=== PATIENT | female | born 1990 | race Caucasian/White ===

== ENCOUNTER 2023-08-24 19:10 | Emergency (ER) | payer BC, SELFPAY ==
[2023-08-24 19:11] VITALS: BP 132/71; PULSE 94; RESP 16; TEMP 36.9; O2SAT 98; BMI 34.2
[2023-08-24 19:57] VITALS: BP 101/69; PULSE 85; RESP 18; TEMP 36.9; O2SAT 96
--- NOTE | 2023-08-24 20:50 | HMH.EDGENADL ---
Discharge Plan Disposition Patient Disposition: Home, Self-Care Condition: Good Prescriptions Prescriptions: New hydrocortisone acetate [Anusol-HC] 25 mg suppository 25 mg SC DAILY PRN (Reason: hemorrhoids) Qty: 12 0RF Referrals Follow up/Referrals: Provider,Rivas, [Primary Care Provider] - See instructions Chandler Gaston MD [Staff Physician] - See instructions Activity Restrictions/Add. Instructions Additional Instructions/Restrictions: You were evaluated in the emergency department today. At this time, I feel that your symptoms are likely related to hemorrhoids. If they continue, I would recommend follow-up with gastroenterology or general surgery for potential endoscopy. Return to the emergency department for new or worsening symptoms, such as significant pain, significant increasing bleeding, or other concerns. I recommend making sure that your stools are soft to limit pressure on the hemorrhoids. bioinformatics support specialist your prescription for suppositories and use as needed. Clinical Impressions Clinical Impression: Hemorrhoids, BRBPR (bright red blood per rectum) Instructions Patient Instructions: DI for Hemorrhoids, DI for Gastrointestinal Bleeding Discharge ED Provider: Brianda Martinez General Adult HPI General Chief complaint: GI Bleed Stated complaint: blood in stool Time Seen by Provider: 08/24/23 19:18 Mode of Arrival: Ambulatory Source of Information: Patient Limitations: No Limitations Description of Symptoms (Recalled from ER Triage Doc. by RN): pt reports bright red blood with BM, reports no pain, reports having history of previos episodes but did not get seen for it History of Present Illness HPI narrative: This patient is a 33-year-old female who denies significant past medical history presented to the emergency department for evaluation with concern for intermittent episodes of bright red blood per rectum. She states that it is with bowel movements. She does not have significant pain in her abdomen or rectum with this. She thought that it was probably hemorrhoids, however she has made sure to eat a lot of fiber and is having good bowel movements and the symptoms have continued to recur. She denies any other concerns, such as fevers, chills, or other issues. The blood does not feel the toilet bowl and her stool is not blood colored. Related Data Previous Rx's Medication Instructions Recorded hydrocortisone acetate 25 mg 25 mg SC DAILY PRN hemorrhoids #12 08/24/23 rectal suppository (Anusol-HC) ea Allergies Allergy/AdvReac Type Severity Reaction Status Date / Time cephalexin [CEPHALEXIN] Allergy Unknown Unverified 08/23/17 14:09 [facility] Disclaimer: The information contained in this section may have been updated after the patient was seen, as this information can be updated by other users. Social History Smoking Status: Never smoker alcohol intake: never current occupational status: employed Travel in the last 8 weeks: None ROS Obtained: Yes All systems reviewed & no additional complaints except as documented Physical Exam General General appearance: alert and in no apparent distress Head Head exam: atraumatic and normocephalic Eye Eye exam: Present normal appearance, PERRL and EOMI ENT ENT exam: Present normal exam, normal oropharynx, mucous membranes moist and normal external ear exam Neck Neck exam: Present normal inspection, full ROM and trachea midline; Absent tenderness Chest Chest inspection: Present normal inspection and symmetric chest wall rise; Absent tenderness Respiratory Respiratory exam: Present normal lung sounds bilaterally; Absent respiratory distress, wheezes, stridor or accessory muscle use Cardiovascular Cardiovascular exam: Present regular rate and normal rhythm Abdominal Exam Abdominal exam: Present soft; Absent distention, tenderness or guarding Rectal Exam Rectal exam: Present hemorrhoid
== END 2023-08-24 19:58 | disposition home or self-care (01) ==
PROVIDERS: Emergency Provider Emergency Medicine
DX: K62.5 Hemorrhage of anus and rectum (principal); K64.9 Unspecified hemorrhoids
CPT/HCPCS: 99283

== ENCOUNTER 2025-08-06 15:38 | Outpatient (CLI) | payer BC, SELFPAY ==
--- OUTSIDE RECORDS SUMMARY | 2025-07-03 13:40 | XMS_ITS | Encounter Summary ---
Author Organization [facility] Address [address] [place] [address] Care Team Providers Care Certified Emergency Vehicle Technician Name Role Phone Héctor Pool MD Primary Care Provider + Reason for Visit * Reason Comments Gynecologic Exam Encounter Details Date Type Department Care Team (Late st Contact Info) Description 07/03/2025 2:40 PM EDT Office Visit [facility] OBGYN [address] [place] [address] Monserrat Jasso MD [address] [place] [address] Women's annual routine gynecological examination (Primary Dx); Encounter for surveillance of contraceptive pills Social History Tobacco Use Types Packs/Day Years Used Date Smoking Tobacco: Never Smokeless Tobacco: Never Alcohol Use Standard Drinks/Week Comments Not Currently 0 (1 standard drink = 0.6 oz pure alcohol) occasional--no abuse--current some day [place] Depression Scale Answer Date Recorded [place] Depression Scale Total 1 10/01/2020 The thought of harming myself has occurred to me . 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 Gynecologic Annual Exam Note Gynecologic Exam Subjective HPI Juana Bowen is a 35 y.o. female who presents for annual well woman exam as a established patient. There were no changes to her medical or surgical history since her last visit.. Patient'slast menstrual period was 06/12/2025. Her periods occur every 28-30 days, lasting 5 days. The flow is light. She denies dysmenorrhea. Marital Status: . She is sexually active. She has not had new partners.. STD testing recommendations have been explained to the patient and she does not desire STD testing. 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 Results: negative. HPV: not done. Her last HPV testing was 2022 and was neg.. Last Completed Pap Smear Upcoming PAP SMEAR (Every 3 Years) Next due on 06/13/2027 06/13/2024 LIQUID-BASED PAP SMEAR WITH HPV GENOTYPING IF ASCUS (MAKENNA,COR,MAD) 06/01/2023 LIQUID-BASED PAP SMEAR WITH HPV GENOTYPING REGARDLESS OF INTERPRETATION (MAKENNA,COR,MAD) 04/07/2021 Pap IG, HPV-hr History of abnormal Pap smear: no Gardasil status:completed Family history of uterine, colon, breast, or ovarian cancer: yes - PGGM- breast Performs monthly Self-Breast Exam: yes Exercises Regularly:yes Feelings of Anxiety or Depression: no Tobacco Usage?: No Current Outpatient Medications: albuterol sulfate HFA 108 (90 Base) MCG/ACT inhaler, Inhale 1-2 puffs As Needed. every 4 to 6 hours, Disp: , Rfl: azelastine (ASTELIN) 0.1 % nasal spray, Administer 2 sprays into the nostril(s) as directed by provider 2 (Two) Times a Day. Use in each nostril as directed, Disp: , Rfl: budesonide-formoterol (Symbicort) 160-4.5 MCG/ACT inhaler, Inhale 2 puffs., Disp: , Rfl: EPINEPHrine (EPIPEN) 0.3 MG/0.3ML solution auto-injector injection, USE DIRECTED IN EVENT OF ANAPHYLAXIS, Disp: , Rfl: fluticasone (FLONASE) 50 MCG/ACT nasal spray, Administer 2 sprays into the nostril(s) as directed by provider Daily., Disp: , Rfl: Loratadine 10 MG capsule, Take by mouth., Disp: , Rfl: mometasone-formoterol (Dulera) 100-5 MCG/ACT inhaler, Every 12 (Twelve) Hours., Disp: , Rfl: norgestimate-ethinyl estradiol (Sprintec 28) 0.25-35 MG-MCG per tablet, Take 1 tablet by mouth Daily., Disp: 84 tablet, Rfl: 3 Patient is requesting refills of OCP. OB History 1 Para 1 Term 1 AB Living 1 SAB IAB Ectopic Molar Multiple 0 Live Births 1 Health Maintenance Topic Date Due Pneumococcal Vaccine 0-49 (1 of 2 - PCV) Never done ANNUAL PHYSICAL Never done INFLUENZA VACCINE 04/05/2025 Annual Gynecologic Pelvic and Breast Exam 06/14/2025 PAP SMEAR 06/13/2027 TDAP/TD VACCINES (3 - Td or Tdap) 07/05/2030 HEPATITIS C SCREENING Completed Past Medical History: Diagnosis Date Allergic 1999 Variety Asthma 2014 Ovarian cyst 2010 Sodium deficiency Past Surgical History: Procedure Laterality Date SECTION N/A 08/19/2020 Procedure: SECTION PRIMARY; Surgeon: Monserrat Jasso MD; Location: [facility]OR DELIVERY; Service: Obstetrics/Gynecology; Laterality: N/A; 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 Review of Systems Constitutional: Negative. HENT: Negative. Eyes: Negative. Respiratory: Negative. Cardiovascular: Negative. Gastrointestinal: Negative. Endocrine: Negative. Genitourinary: Negative. Musculoskeletal: Negative. Skin: Negative. Allergic/Immunologic: Negative. Neurological: Negative. Hematological: Negative. Psychiatric/Behavioral: Negative. I have reviewed and agree with the HPI, ROS, and historical information as entered above. Monserrat Jasso MD Objective BP 104/70 Ht 152.4 cm (60 ) Wt 83.2 kg (183 lb 6.4 oz) LMP 06/12/2025 BMI 35.82 kg/m?? Physical Exam Vitals and nursing note reviewed. Exam conducted with a laboratory chief present. Constitutional: Appearance: She is well-developed. HENT: Head: Normocephalic and atraumatic. Eyes: Pupils: Pupils are equal, round, and reactive to light. Neck: Thyroid: No thyroid mass or thyromegaly. Pulmonary: Effort: Pulmonary effort is normal. No retractions. Chest: Chest wall: No mass. Breasts: Right: Normal. No mass, nipple discharge, skin change or tenderness. Left: Normal. No mass, nipple discharge, skin change or tenderness. Abdominal: General: Bowel sounds are normal. Palpations: Abdomen is soft. Abdomen is not rigid. There is no mass. Tenderness: There is no abdominal tenderness. There is no guarding. Hernia: No hernia is present. There is no hernia in the left inguinal area or right inguinal area. Genitourinary: Exam position: Lithotomy position. Pubic Area: No rash. Labia: Right: No rash, tenderness or lesion. Left: No rash, tenderness or lesion. Urethra: No urethral pain or urethral swelling. Vagina: Normal. No vaginal discharge or lesions. Cervix: No cervical motion tenderness, discharge, lesion or cervical bleeding. Uterus: Normal. Not enlarged, not fixed and not tender. Adnexa: Right: No mass, tenderness or fullness. Left: No mass, tenderness or fullness. Rectum: No external hemorrhoid. Musculoskeletal: Cervical back: Normal range of motion. No muscular tenderness. Right lower leg: No edema. Left lower leg: No edema. Skin: General: Skin is warm and dry. Neurological: Mental Status: She is alert and oriented to person, place, and time. Motor: Motor function is intact. Psychiatric: Mood and Affect: Mood and affect normal. Behavior: Behavior normal. 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 Reviewed pap guidelines. Reviewed monthly self breast exams. Instructed to call with lumps, pain, or breast discharge. Reviewed exercise as a preventative health measures. Return in about 1 month (around 08/03/2025) for F/U . Monserrat Jasso MD 07/03/2025 documented in this encounter Plan of Treatment Upcoming Encounters Date Type Department Care Team (Late st Contact Info) Description 07/09/2026 10:50 AM EST Office Visit [facility] OBGYN [address] [place] [address] Monserrat Jasso MD [address] [place] [id number] documented as of this encounter Visit Diagnoses Diagnosis Women's annual routine gynecological examination- Primary Encounter for surveillance of contraceptive pills documented in this encounter Care Teams Certified Emergency Vehicle Technician Relationship Specialty Start Date End Date Héctor Pool MD [address] [place] [address] PCP - General Family Medicine 03/09/24 documented as of this encounter
--- OUTSIDE RECORDS SUMMARY | 2025-08-07 09:57 | XMS_ITS | Encounter Summary ---
Author Organization [facility] Address [address] [place] [address] Care Team Providers Care Inspectors And Regulatory Officers Name Role Phone Héctor Polo MD Primary Care Provider + Encounter Details Date Type Department Care Team (Latest Contact Info) Description 07/03/2025 Travel Social History Tobacco Use Types Packs/Day Years Used Date Smoking Tobacco: Never Smokeless Tobacco: Never Alcohol Use Standard Drinks/Week Comments Not Currently 0 (1 standard drink = 0.6 oz pure alcohol) occasional--no abuse--current some day [place] Depression Scale Answer Date Recorded [place] Depression Scale Total 1 10/01/2020 The thought [...] 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 on file Not on file documented as of this encounter Plan of Treatment Upcoming Encounters Date Type Department Care Team (Late st Contact Info) Description 07/09/2026 10:50 AM EST Office Visit [facility] OBGYN [address] [place] [address] [place] [address] [place] [address] [place] [id number] documented as of this encounter Visit Diagnoses Not on filedocumented in this encounter Care Teams Inspectors And Regulatory Officers Relationship Specialty Start Date End Date Héctor Pool MD [address] [place] [address] PCP - General Family Medicine 03/09/24 documented as of this encounter
--- OUTSIDE RECORDS SUMMARY | 2025-08-07 09:57 | XMS_ITS | Clinical Summary ---
Author Organization [email or web address] ([place], [place], [place], [place], [place]) Address [address] [place] [address] Care Team Providers Care Chief Substation Operator Name Role Phone [facility], Provider Not In The System Primary Care Provider Unavailable Allergies Active Allergy Reactions Criticality Noted Date Comments Acetaminophen Other (See Comments) 01/04/2024 Dry mouth, pain that shoots down spine Adhesive Tape Rash Low 01/04/2024 itching Medications fluticasone propionate (FLONASE) 50 mcg/actuation nasal spray 2 sprays by Nasal route. Active loratadine 10 mg Cap Take by mouth. Active azelastine (ASTELIN) 137 mcg (0.1 %) nasal spray 2 sprays by Nasal route. Active budesonide-form oteroL (SYMBICORT) 160-4.5 mcg/actuation inhaler Inhale 2 puffs by mouth via inhaler 2 (two) times daily. Active Active Problems Problem Noted Date Diagnosed Date Asthma Obesity (BMI 30.0-34.9) Social History Tobacco Use Types Packs/Day Years Used Date Smoking Tobacco: Never Smokeless Tobacco: Never Tobacco Cessation:Counseling Given: Not Answered Alcohol Use Standard Drinks/Week Comments Not Asked 0 (1 standard drink = 0.6 oz pur e alcohol) rarely Food Insecurity Answer Date Recorded Food run out past 12 months Not on file 09/07 Food did not last past 12 months Not on file 10/05/2023 Employment Answer Date Recorded Help finding and keeping a job Not on file 0 10/05/2023 Family and Community Support Answer Grant e Recorded Help with Day to Day Activities Not on file 10/05/2023 Feeling Lonely or Isolated Not on file 10/05 Educational Attainment Answer Date Ayden rded Speak language other than Sammarinese at home Not on file 10/05/2023 Want help with school or training Not on file 10/05/2023 Substance Use Answer Date Recorded Used prescription meds for non-medical reasons N ot on file 10/05/2023 Used illegal drugs past 12 months Not on file 10/05/2023 Comments No Sex and Gender Information Value Date Recorded Sex Assigned at Not on file Legal Sex Female 10:45 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 Gender Identity Not on file Sexual Orientation Not on file Last Filed Vital Signs Vital Sign Reading Time Taken Comments Blood Pressure 113/67 01/05/2024 11:20 AM EDT Pulse 75 01/05/2024 11:20 AM EDT Temperature 36.3 C (97.3 F) 01/05/2024 11:07 AM EDT Respiratory Rate 16 01/05/2024 11:20 AM EDT Oxygen Saturation 100% 01/05/2024 11:20 AM EDT room air Inhaled Oxygen Concentration - - Weight 80.1 kg (176 lb 9.6 oz) 01/05/2024 7:40 A M EDT Height 152.4 cm (5') 01/05/2024 7:40 AM EDT Body Mass Index 34.49 01/05/2024 7:40 AM EDT Plan of Treatment Health Maintenance Due Date Last Done Comments Depression Screening (12+) 2003 HIV Screening 2006 Hepatitis C Screening 2009 Pneumococcal Vaccine: 0-49 Y ears (1 of 2 - PCV) 2010 Lipid Panel 2011 Pap Smear 2012 Tobacco Cessation Counseling and Screening (12+) 01/04/2025 01/05/2024 COVID-19 VACCINE (3 - 2024- season) 2025, 01/06/2021 Influenza Vaccine (#1) 2025 DTAP/TDAP/TD VACCINES (3 - Td or Tdap) 07/05/2030, 07/05/2017 Insurance BLUE CROSS/BLUE SHIELD Care Teams Chief Substation Operator Relationship Specialty Start Date End Date [facility], Provider Not In The System, [place] [address] PCP - General 01/05/24
--- OUTSIDE RECORDS SUMMARY | 2025-08-07 09:57 | XMS_ITS | Referral Summary ---
Author Organization [employer] ([place], [place], [place], [place], [place]) Address [address] [place] [place] [address] Care Team Providers Care Chemical Plant Worker Name Role Phone 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, Provider Not In The System, [place] [address] PCP - General 01/05/24
--- OUTSIDE RECORDS SUMMARY | 2025-08-07 09:58 | XMS_ITS | Clinical Summary ---
Author Organization [facility] Address [address] [place] [address] Care Team Providers Care Cook Helper Preserves Name Role Phone Héctor Pool MD Primary Care Provider + Allergies Active Allergy Reactions Criticality Noted Date Comments Cephalexin Rash Low 05/21/2020 Horse-Derived Products Cough 05/21/2020 Horses, hay, dust from the barn, anything related to horses Lavender Oil Rash Low 05/21/2020 Nuts Rash Low 05/21/2020 Ear lobes swelled Acetaminophen Other (See Comments) 05/21/2020 Shooting spinal pain [id number]- a few years ago dry mouth [id number] Medications Loratadine 10 MG capsule Take by mouth. Acti ve azelastine (ASTELIN) 0.1 % nasal spray Administer 2 sprays into the nostril(s) as directed by provider 2 (Two) Times a Day. Use in each nostril as directed Active fluticasone (FLONASE) 50 MCG/ACT nasal spray Administer 2 sprays into the nostril(s) as directed by provider Daily. Active budesonide-form oterol (Symbicort) 160-4.5 MCG/ACT inhaler Inhale 2 puffs. Acti ve mometasone-form oterol (Dulera) 100-5 MCG/ACT inhaler Every 12 (Twelve) Hours. Active EPINEPHrine (EPIPEN) 0.3 MG/0.3ML solution auto-injector injection USE DIRECTED IN EVENT OF ANAPHYLAXIS 5 Active albuterol sulfate HFA 108 (90 Base) MCG/ACT inhaler Inhale 1-2 puffs As Needed. every 4 to 6 hours 5 Active norgestimate-et hinyl estradiol (Sprintec 28) 0.25-35 MG-MCG per tablet Take 1 tablet by mouth Daily. 84 tablet 3 5 Active Active Problems Problem Noted Date Diagnosed Date Moderate persistent asthma without complication 03/09/2024 Non-seasonal allergic rhinitis 03/09/2024 Resolved Problems Problem Noted Date Diagnosed Date Resolved Date Term 08/17/2020 08/22/2020 Encounters Date Type Department Care Team Description 07/03/2025 2:40 PM EDT Office Visit [facility] [address] [phone] Monserrat Maher MD Women's annual routine gynecological examination (Primary Dx); Encounter for surveillance of contraceptive pills 07/03/2025 Travel 2025 Refill [facility] [address] [phone] Monserrat Maher MD from Last 3 Months Family History Medical History Relation Name Comments Hypertension Father Abdelrahman Whitt Parkinsonism Maternal Grandfather Hypertension Mother Goergina Whitt Lung cancer Other Family History Breast cancer Paternal Great-Grandmother Relation Name Status Comments Father Abdelrahman Whitt Alive Maternal Grandfather Mother Georgina Whitt Alive Other Family History Paternal Great-Grandmother Social History Tobacco Use Types Packs/Day Years Used Date Smoking Tobacco: Never Smokeless Tobacco: Never Tobacco Cessation:Counseling Given: Not Answered Alcohol Use Standard Drinks/Week Comments Not Currently 0 (1 standard drink = 0.6 oz pure alcohol) occasional--no abuse--current some day [place] Depression Scale Answer Date Recorded [place] Depression Scale Total 1 10/01/2020 The thought [...] 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 Not on file Not on file Last Filed Vital Signs Vital Sign Reading Time Taken Comments Blood Pressure 104/70 07/03/2025 3:16 PM EDT Pulse 96 03/09/2024 8:59 AM EDT Temperature 36.4 C (97.5 F) 03/09/2024 8:59 AM EDT Respiratory Rate 12 03/09/2024 8:59 AM EDT Oxygen Saturation 97% 03/09/2024 8:59 AM EDT Inhaled Oxygen Concentration - - Weight 83.2 kg (183 lb 6.4 oz) 07/03/2025 3:16 P M EDT Height 152.4 cm (5') 07/03/2025 3:16 PM EDT Body Mass Index 35.82 07/03/2025 3:16 PM EDT Plan of Treatment Upcoming Encounters Date Type Department Care Team (Late st Contact Info) Description 07/09/2026 10:50 AM EST Office Visit [facility] OBGYN [address] [place] [address] Monserrat Maher MD [address] [place] [address] Health Maintenance Due Date Last Done Comments Pneumococcal Vaccine 0-49 (1 of 2 - PCV) 2010 ANNUAL PHYSICAL 02/16/2017 INFLUENZA VACCINE 04/05/2025 07/05/2020, 07/05/2017 Annual Gynecologic Pelvic an d Breast Exam 07/04/2026 07/03/2025, 06/01/2023 PAP SMEAR 06/13/2027 06/13/2024, 05/07, 04/07/2021 TDAP/TD VACCINES (3 - Td or Tdap) 07/05/2030 020, 07/05/2017 HEPATITIS C SCREENING Completed 01/02/2020 Procedures Procedure Name Priority Date/Time Associated Diagnosis Comments LIQUID-BASED PAP SMEAR WITH HPV GENOTYPING IF ASCUS, [facility] ([facility]) Routine 06/13/2024 1:37 PM EDT Women's annual routine gynecological examination HEPATITIS C ANTIBODY Routine 01/02/2020 from Last 3 Months or Most Recently Relevant to Health Maintenance Results * LIQUID-BASED PAP SMEAR WITH HPV GENOTYPING IF ASCUS ([facility]) (06/13/2024 1:37 PM EDT) Reference Lab Report [facility] [address] [place] [address] or [phone] Shade Duong M.D., Tax Map Technician PATIENT NAME LABORATORY NO. [id number] BAKER [id number] AGE SEX SSN CLIENT REF # [facility] [facility] 34 1990 F [id number] [facility] TONYA DE LA CRUZ REQUESTING [place]baldo [place] [address] MONSERRAT MAHER DATE COLLECTED DATE RECEIVED DATE REPORTED 06/13/2024 06/13/2024 06/14/2024 ThinPrep Pap with Cytyc Imaging DIAGNOSIS: Negative for intraepithelial lesion or malignancy Multiple factors can influence accuracy of Pap tests; therefore, screening at regular intervals is necessary for early cancer detection. SPECIMEN ADEQUACY: SATISFACTORY FOR EVALUATION Transformation zone is present. SOURCE OF SPECIMEN: CERVICAL/ENDOCERV ICAL SLIDES: 1 CLINICAL HISTORY: Women's annual routine gynecological examination PREP ROOM SUPERVISOR: GONZALES ELLINGTON (ASCP) CPT CODES: 29501 06/14/2024 12:56 PM EDT [facility] ThinPrep Vial Cervix uteri structure / Unknown Collection / Unknown 06/13/2024 1:37 PM EDT 06/13/2024 1:37 PM EDT Monserrat Maher MD PATHOLOGY/CYTOLOGY ORDERABLES Fi nal Result [facility]
[address] [place] [address], * Hepatitis C Antibody (01/02/2020) External Hepatitis C Ab negative Blood Historical Provider LAB BLOOD ORDERABLES Keira de la garza Result from Last 3 Months or Most Recently Relevant to Health Maintenance Insurance [facility] PPO Advance Directives * CPR (Attempt to Resuscitate) (Latest Code Status on File) Date Activated Date Inactivated Comments 08/19/2020 12:03 PM 08/22/2020 7:19 PM Question Answer Comments Code Status (Patient has no pulse and is not breathing): CPR (Attempt to Resuscitate) Medical Interventions (Patie nt has pulse or is breathing): Full * CPR (Attempt to Resuscitate) Date Activated Date Inactivated Comments 08/17/2020 11:16 PM 08/19/2020 12:03 PM Question Answer Comments Code Status (Patient has no pulse and is not breathing): CPR (Attempt to Resuscitate) Medical Interventions (Patie nt has pulse or is breathing): Full Care Teams Cook Helper Preserves Relationship Specialty Start Date End Date Héctor Pool MD [facility] OTNYA DE LA CRUZ [place] [address] PCP - General Family Medicine 03/09/24
== END 2025-08-06 23:59 ==
LOC: LAB.DROPOF 08-07 09:51
PROVIDERS: Visit Provider Nurse Practitioner
DX: J02.9 Acute pharyngitis, unspecified (principal)
CPT/HCPCS: 87070